=== PATIENT | male | born 1960 | race African-American/Black ===

== ENCOUNTER 2024-03-26 17:23 | Emergency (ER) | payer OTHER ==
--- NOTE | 2024-03-26 19:10 | RAD REPORT ---
EXAM: CT brain without contrast HISTORY: Headache;Pain;Syncope COMPARISON: None TECHNIQUE: Multiple contiguous axial images were obtained and a CT of the brain without contrast. Sag ittal and coronal reformats were performed. FINDINGS: No evidence of hydrocephalus, intracranial hemorrhage, or extra-axial fluid collection. The brain is normal in morphology. The calvarium is intact. The visualized paranasal sinuses and mastoid air cells are essentially clear . IMPRESSION: No evidence of acute intracranial abnormality. EXAM: CT of the cervical spine without contrast HISTORY: Headache;Pain;Syncope COMPARISON: None TECHNIQUE: Multiple contiguous axial images were obtained in a CT of the cervical spine without contr ast. Sagittal and coronal reformats were performed. FINDINGS: Straightening of normal cervical process, could be positional or secondary to muscle spasm. The vertebral bodies demonstrate normal height and alignment. No evidence of acute fracture or subluxation.. Mild endplate and facet remodeling contributing to mild to moderate left neural foramin al narrowing at C4-5. No prevertebral soft tissue swelling is seen. The posterior facets are well aligned. Normal alignment of the skull base with the cervical spine is seen. The lung apices are unremarkable. IMPRESSION: No evidence of acute osseous abnormality of the cervical spine. Degenerative changes as above.
[2024-03-26 19:16] LABS: Absolute Basophils 0.1 K/uL (0-0.5); Absolute Eosinophils 0.1 K/uL (0-0.5); Absolute Lymphocytes (CBC) 2.4 K/uL (0.7-4.9); Absolute Monocytes 0.7 K/uL (0.1-1.3); Absolute Neutrophil 6.3 K/uL (1.8-8.0); Basophils % 0.8 % (0-1.3); Eosinophils % 0.9 % (0-4.4); Hematocrit 45.2 % (39.6-49.0); Lymphocytes % 24.9 % (15.3-44.8); MCH 32.4 pg (27.0-35.0); MCHC 33.3 g/dL (32.0-36.0); MCV 97.5 fL (80-100); MPV 7.7 fL (7.6-11.3); Neutrophils % 66.4 % (41.7-73.7); Nucleated Red Blood Cells % 0.1 % (0-0); Platelets 197 thou/uL (152-406); RBC Red Blood Cell Count 4.63 M/uL (4.33-5.43); Red Cell Distribution Width 14.2 % (12.1-15.2)
[2024-03-26 19:35] LABS: Albumin 3.7 g/dL (3.4-5.0); Albumin/Globulin Ratio 0.9 (1.1-1.8); Anion Gap 7.3 mEq/L (5.0-15.0); Bilirubin Direct 0.2 mg/dL (0-0.2); Bilirubin Indirect, Calculated 0.6 mg/dL (0.2-0.8); Bilirubin Total 0.8 mg/dL (0.2-1.0); Globulin 4.2 g/dL (2.3-3.5); Potassium 4.3 mEq/L (3.5-5.1); Protein, Total 7.9 g/dL (6.4-8.2)
--- NOTE | 2024-03-26 20:52 | EDPHYS ---
Physician Documentation [facility] Name: Burton Schaefer Age: 63 yrs Sex: Male : 1960 Arrival Date: 03/26/2024 Time: 17:23 Bed IW1 Private MD: ED Physician Grnat Snider HPI: 03/26 18:00 This 63 yrs old Black Male presents to ER via Ambulatory with complaints of Head kb Injury-Adult. 18:00 Pt is a 63 year old male who presents for syncope and head injury. Pt states he was on kb a flight home from [place], felt nauseated so he got up and went to the restroom. States he got to the door of the restroom and pass out. Reports hitting head when he fell. Denies any other injuries. States he is still having pain and isn't sure what made him pass out. . Historical: - Allergies: 17:58 No Known Allergies; cm10 - Home Meds: 17:58 None [Active]; cm10 - PMHx: 17:58 None; cm10 - PSHx: 17:58 None; cm10 - Immunization history:: Adult Immunizations up to date. - Infectious Disease History:: Denies. - Social history:: Smoking status: Patient denies any tobacco usage or history of. ROS: 17:58 Constitutional: As per HPI kb Exam: 17:58 Constitutional: This is a well developed, well nourished patient who is awake, alert, kb and in no acute distress. Eyes: Pupils equal round and reactive to light, extra-ocular motions intact. Lids and lashes normal. Conjunctiva and sclera are non-icteric and not injected. Cornea within normal limits. Periorbital areas with no swelling, redness, or edema. ENT: Moist Mucous membranes Cardiovascular: Regular rate Respiratory: Respirations even and unlabored. No increased work of breathing. Talking in full sentences Back: No spinal tenderness. No costovertebral tenderness. Full range of motion. Skin: Warm, dry with normal turgor. Normal color. MS/ Extremity: Pulses equal, no cyanosis. Neurovascular intact. Full, normal range of motion. Neuro: Awake and alert, GCS 15, oriented to person, place, time, and situation. 17:58 Head/face: Noted is no obvious of injury or deformity except tenderness, that is mild, of the forehead, right anabaptism, left anabaptism and left base of the skull, 17:58 Neck: External neck: tenderness, that is mild, of the left posterior aspect of neck, 19:26 ECG was reviewed by the Attending Physician. kb Vital Signs: 17:57 BP 128 / 93; Pulse 88; Resp 15; Temp 97.5; Pulse Ox 100% on R/A; Weight 92.99 kg; cm10 Height 5 ft. 8 in. ; Pain 6/10; 21:12 BP 136 / 89; Pulse 81; Resp 16 S; Temp 97.8(O); Pulse Ox 100% on R/A; Pain 3/10; lg3 17:57 Body Mass Index 31.17 (92.99 kg, 172.72 cm) cm10 17:57 Pain Scale: Adult cm10 21:12 Pain Scale: Adult lg3 [place] Coma Score: 17:57 Eye Response: spontaneous(4). Motor Response: obeys commands(6). Verbal Response: cm10 oriented(5). Total: 15. 18:00 Eye Response: spontaneous(4). Motor Response: obeys commands(6). Verbal Response: kb oriented(5). Total: 15. MDM: 17:34 Medical Screening Exam initiated kb 18:00 Data reviewed: vital signs, nurses notes. kb 20:50 Differential Diagnosis: cardiac arrhythmia, idiopathic syncope, vasovagal episode, ICH. kb Historians other than the Patient: Spouse/Significant Other: . Counseling: I had a detailed discussion with the patient and/or guardian regarding the historical points, exam findings, and any diagnostic results supporting the discharge/admit diagnosis, lab results, radiology results, the need for outpatient follow up, a family practitioner, to return to the emergency department if symptoms worsen or persist or if there are any questions or concerns that arise at home. 03/26 17:58 Order name: Basic Metabolic Panel; Complete Time: 19:37 kb 03/26 17:58 Order name: CBC with Diff; Complete Time: 19:23 kb 03/26 17:58 Order name: Hepatic Function; Complete Time: 19:37 kb 03/26 17:58 Order name: Magnesium; Complete Time: 19:37 kb 03/26 17:58 Order name: Troponin High Sensitivity; Complete Time: 19:37 kb 03/26 17:58 Order name: CT Head C Spine; Complete Time: 19:11 kb 03/26 17:58 Order name: EKG; Complete Time: 17:59 kb 03/26 17:58 Order name: EKG - Nurse/Tech; Complete Time: 19:22 kb 03/26 17:58 Order name: IV Saline Lock; Complete Time: 19:10 kb 03/26 17:58 Order name: Labs collected and sent; Complete Time: 19:10 kb EC:26 Rate is 69 beats/min. Rhythm is regular. QRS [place] is Normal. MN interval is normal at kb 168 msec. QRS interval is normal at 88 msec. QT interval is normal at 409 msec. Administered Medications: No medications were administered Disposition Summary: 03/26/24 20:51 Discharge Ordered Notes: Location: Home kb Condition: Stable kb Diagnosis - Syncope kb - Unspecified injury of head, initial encounter kb Followup: kb - With: Emergency Department - When: As needed - Reason: Worsening of condition Followup: kb - With: Private Physician - When: 2 - 3 days - Reason: Recheck today's complaints, Continuance of care, Re-evaluation by your physician Discharge Instructions: - Discharge Summary Sheet kb - Syncope, [id number] kb - Head Injury, Adult, [id number]-[id number] kb Forms: - Medication Reconciliation Form kb - Antibiotic Education kb - Prescription Opioid Use kb - Patient Portal Instructions kb - Leadership Thank You Letter kb Addendum: 03/28/2024 23:23 Co-signature as Attending Physician, Grant Snider MD I agree with the assessment and c gann plan of care. Signatures: Dispatcher [employer] EDMaggy Clayton, WARP TRUCKER-C WARP TRUCKER-Vernonb Grant Snider MD MD cha Martinez, Clarissa, RN RN cm10 Corrections: (The following items were deleted from the chart) 03/26 17:59 17:59 BASIC METABOLIC PANEL+C.LAB.BRZ ordered. EDMS EDMS 17:59 17:59 CBC+H.LAB.BRZ ordered. EDMS EDMS 17:59 17:59 HEPATIC FUNCTION+C.LAB.BRZ ordered. EDMS EDMS 17:59 17:59 MAGNESIUM+C.LAB.BRZ ordered. EDMS EDMS 17:59 17:59 Troponin High Sensitivity+C.LAB.BRZ ordered. EDMS EDMS 17:59 17:59 Head C Spine MPR Wo Con+CT.RAD.BRZ ordered. EDMS EDMS :58 17:58 Cardiac monitoring ordered. kb lg3
--- NOTE | 2024-03-26 20:52 | ER ---
Nurse's Notes [facility] Name: Burton Schaefer Age: 63 yrs Sex: Male : 1960 Arrival Date: 03/26/2024 Time: 17:23 Bed IW1 Private MD: Diagnosis: Syncope;Unspecified injury of head, initial encounter Presentation: 03/26 17:57 Chief complaint: Patient states: Syncopal episode this morning. Pt states that he hit cm10 his head. Coronavirus screen: Client denies travel out of the [place] in the last 14 days. Ebola Screen: Patient denies travel to an Ebola-affected area in the 21 days before illness onset. Initial Sepsis Screen: Does the patient meet any 2 criteria? No. Patient's initial sepsis screen is negative. Does the patient have a suspected source of infection? No. Patient's initial sepsis screen is negative. Risk Assessment: Do you want to hurt yourself or someone else? Patient reports no desire to harm self or others. Onset of symptoms was March 26, 2024. 17:57 Method Of Arrival: Ambulatory 10 17:57 Acuity: JORGE 3 cm10 Triage Assessment: 17:59 General: Appears in no apparent distress. comfortable, Behavior is calm, cooperative. cm10 Neuro: No deficits noted. Level of Consciousness is awake, alert, obeys commands, Oriented to person, place, time, situation, Appropriate for age Reports headache a syncopal episode. Respiratory: No deficits noted. Airway is patent Respiratory effort is even, unlabored, Respiratory pattern is regular, symmetrical. Historical: - Allergies: 17:58 No Known Allergies; cm10 - Home Meds: 17:58 None [Active]; cm10 - PMHx: 17:58 None; cm10 - PSHx: 17:58 None; cm10 - Immunization history:: Adult Immunizations up to date. - Infectious Disease History:: Denies. - Social history:: Smoking status: Patient denies any tobacco usage or history of. Screenin:12 [facility] ED Fall Risk Assessment (Adult) History of falling in the last 3 months, lg3 including since admission Yes- single mechanical fall (1 pt) Confusion or Disorientation No (0 pts) Intoxicated or Sedated No (0 pts) Impaired Gait No (0 pts) Mobility Assist Device Used No (0 pt) Altered Elimination No (0 pt) Score/Fall Risk Level 0 - 2 = Low Risk Oriented to surroundings, Maintained a safe environment, Educated pt \T\ family on fall prevention, incl call for assistance when getting out of bed, Assessed \T\ reinforced patient's understanding of fall precautions. Abuse screen: Denies threats or abuse. Denies injuries from another. Nutritional screening: No deficits noted. Tuberculosis screening: No symptoms or risk factors identified. Assessment: 21:12 General: Appears in no apparent distress. comfortable, Behavior is calm, cooperative. lg3 Pain: Complains of pain in head Pain does not radiate. Pain currently is 5 out of 10 on a pain scale. Neuro: No deficits noted. [place] Agitation-Sedation Scale (RASS): 0 - Alert and Calm Level of Consciousness is awake, alert, obeys commands, Oriented to person, place, time, situation. Cardiovascular: No deficits noted. Denies chest pain, shortness of breath, Capillary refill < 3 seconds Clubbing of nail beds is absent JVD is absent Patient's skin is warm and dry. Respiratory: No deficits noted. Airway is patent Respiratory effort is even, unlabored, Respiratory pattern is regular, symmetrical. GI: No deficits noted. No signs and/or symptoms were reported involving the gastrointestinal system. : No signs and/or symptoms were reported regarding the genitourinary system. EENT: No deficits noted. No signs and/or symptoms were reported regarding the EENT system. Derm: No deficits noted. No signs and/or symptoms reported regarding the dermatologic system. Skin is intact, is healthy with good turgor, Skin is dry, Skin is normal, Skin temperature is warm. Musculoskeletal: No deficits noted. Circulation, motion, and sensation intact. Range of motion: intact in all extremities. Vital Signs: 17:57 BP 128 / 93; Pulse 88; Resp 15; Temp 97.5; Pulse Ox 100% on R/A; Weight 92.99 kg; cm10 Height 5 ft. 8 in. ; Pain 6/10; 21:12 BP 136 / 89; Pulse 81; Resp 16 S; Temp 97.8(O); Pulse Ox 100% on R/A; Pain 3/10; lg3 17:57 Body Mass Index 31.17 (92.99 kg, 172.72 cm) cm10 17:57 Pain Scale: Adult cm10 21:12 Pain Scale: Adult lg3 [place] Coma Score: 17:57 Eye Response: spontaneous(4). Motor Response: obeys commands(6). Verbal Response: cm10 oriented(5). Total: 15. 18:00 Eye Response: spontaneous(4). Motor Response: obeys commands(6). Verbal Response: kb oriented(5). Total: 15. ED Course: 17:24 Patient arrived in ED. jj6 17:33 Maggy Piper FNP-C [facility] kb 17:34 Grant Snider MD is Attending Physician. kb 17:58 Triage completed. cm10 17:59 Arm band placed on right wrist. Patient placed in waiting room. cm10 18:25 CT Head C Spine In Process Unspecified. EDMS 19:10 Basic Metabolic Panel Sent. bc6 19:10 CBC with Diff Sent. bc6 19:10 Hepatic Function Sent. bc6 19:10 Magnesium Sent. bc6 19:10 Troponin High Sensitivity Sent. bc6 19:10 Initial lab(s) drawn, by me, sent to lab. Inserted saline lock: 20 gauge in left bc6 antecubital area, using aseptic technique. Blood collected. Flushed with 10 mL NS. 21:12 Patient has correct armband on for positive identification. lg3 21:12 No provider procedures requiring assistance completed. IV discontinued, intact, lg3 bleeding controlled, No redness/swelling at site. Pressure dressing applied. Administered Medications: No medications were administered Medication: 21:12 VIS not applicable for this client. lg3 Outcome: 20:51 Discharge ordered by . kb 21:12 Discharged to home ambulatory, lg3 21:12 Condition: stable 21:12 Discharge instructions given to patient, Instructed on discharge instructions, follow up and referral plans. Demonstrated understanding of instructions, follow-up care, 21:15 Patient left the ED. lg3 Signatures: Dispatcher [employer] EDMS Maggy Piper FNP-C FNP-Ckb Able, Lacie, RN RN lg3 Lia Ceballos jj6 Faby Cervantes bc6 Carrie Godoy, RN RN cm10 Corrections: (The following items were deleted from the chart) 17:58 17:56 Chief complaint: cm10 cm10
[2024-03-26 21:46] VITALS: O2SAT 100
[2024-03-26 21:52] VITALS: BP 136/89; TEMP 97.8
--- NOTE | 2024-03-27 11:26 | EKG ---
Test Date: 2024-03-26 Test Time: 19:17:35 Material Expeditor: BCW MEASUREMENT RESULTS: Intervals: Rate: 69 TX: 168 QRSD: 88 QT: 382 QTc: 409 [place]: P: 46 [place]: 168 QRS: -51 T: -13 INTERPRETIVE STATEMENTS: Normal sinus rhythm with sinus arrhythmia Left anterior fascicular block Abnormal ECG No previous ECG available for comparison Electronically Signed On 03-27-24 11:24:51 [employer] PU[employer] STATION OPERATOR by Curtis Kumar
== END 2024-03-26 21:15 | disposition home or self-care (01) ==
LOC: ER 17:23
DX: R55 Syncope and collapse (principal); S09.90XA Unspecified injury of head, initial encounter; W18.30XA Fall on same level, unspecified, initial encounter
CPT/HCPCS: 36415; 70450; 72125; 80048; 80076; 83735; 84484; 85025; 93005; 99284